=== PATIENT | male | born 1955 | race Caucasian/White ===

== ENCOUNTER 2022-02-04 12:54 | Emergency (ER) | payer OTHER, SELFPAY ==
[2022-02-04] MEDS ORDERED: Bacitracin 1 PK ONE (14:01)
== END 2022-02-04 14:51 | disposition home or self-care (01) ==
LOC: ERS 12:54
DX: S80.12XA Contusion of left lower leg, initial encounter (principal); I10 Essential (primary) hypertension; V86.99XA Unspecified occupant of other special all-terrain or other off-road motor vehicle injured in nontraffic accident, initial encounter; Z79.899 Other long term (current) drug therapy